=== PATIENT | male | born 1950 | race Caucasian/White ===

== ENCOUNTER 2018-10-07 18:34 | Emergency (ER) | payer MEDICARE, OTHER ==
[~2018-10-07] VITALS: Ht 167.6 cm; Wt 72.6 kg
[2018-10-07] MEDS ORDERED: PANT40TA4 PO (18:48)
[2018-10-07] MEDS ORDERED: BENA20TA9 PO (18:48)
[2018-10-07] MEDS ORDERED: METF-440 PO (18:48)
[2018-10-07] MEDS ORDERED: GLYB5TAB7 PO (18:48)
--- NOTE | 2018-10-07 19:14 | NUR ---
Received report from lilly RN, pt. resting in bed, emesis bag given, traffic monitor specialist being observed from nurse station, bed in low position,
[2018-10-07] MEDS ORDERED: IV NORMAL SALINE 1000 ML BAG IV ONE (19:15)
[2018-10-07] MEDS ORDERED: HYDROMORPHONE 1 MG/1 ML DISP.SYRIN IV ONE (19:15)
[2018-10-07] MEDS ORDERED: ONDANSETRON 4 MG/2 ML VIAL IV ONE (19:15)
--- NOTE | 2018-10-07 19:35 | NUR ---
Phleb. tech. at bedside for blood collection,
[2018-10-07 19:37] LABS: BASOPHILS % (AUTO) 0.4 % (0.0-2.0); EOSINOPHILS % (AUTO) 0.4 % (0.0-7.0); HEMOGLOBIN 13.6 g/dL (12.5-16.3); LYMPHOCYTES # (AUTO) 0.8 K/uL (20.0-40.0); MEAN CORPUSCULAR HEMOGLOBIN 30.5 uug (23.8-33.4); MEAN CORPUSCULAR HGB CONC 35 g/dL (32.5-36.3); MEAN CORPUSCULAR VOLUME 87.7 fL (73.0-96.2); MONOCYTES # (AUTO) 0.6 K/uL (2.0-10.0); MONOCYTES % (AUTO) 6.9 % (0.0-11.0); NEUTROPHILS # (AUTO) 7.8 K/uL (1.8-8.9); NEUTROPHILS % (AUTO) 83.3 % (38.5-71.5); PLATELET COUNT (AUTO) 217 K/uL (152-348); RED BLOOD CELL COUNT(AUTO) 4.45 MIL/uL (4.06-5.63); WHITE BLOOD COUNT (AUTO) 9.4 K/uL (3.6-10.2)
[2018-10-07] MEDS ORDERED: ONDANSETRON 4 MG/2 ML VIAL ONE (19:39)
[2018-10-07] MEDS ORDERED: HYDROMORPHONE 1 MG/1 ML DISP.SYRIN ONE (19:39)
[2018-10-07 19:44] LABS: CREATININE 1.6 mg/dL (0.6-1.3)
--- NOTE | 2018-10-07 19:47 | NUR ---
Pt. taken off unit via stretcher by [employer] tech. for CT
[2018-10-07 19:51] LABS: BILIRUBIN,DIRECT 0.2 mg/dL (0.0-0.2); BILIRUBIN,TOTAL 0.7 mg/dL (0.2-1.0); TOTAL PROTEIN, SERUM 7.4 g/dL (6.4-8.2)
[2018-10-07] MEDS: MAG HYDROX/AL HYDROX/SIMETH 30 ML LIQUID UDC PO ONE ×2 (20:15→20:40)
[2018-10-07] MEDS ORDERED: DICYCLOMINE HCL LIQ 10 MG/5 ML UDC PO ONE (20:15)
[2018-10-07] MEDS ORDERED: MAGNESIUM HYDROXIDE 30 ML LIQUID UDC ONE (20:38)
[2018-10-07] MEDS ORDERED: DICYCLOMINE HCL LIQ 10 MG/5 ML UDC ONE (20:38)
[2018-10-07] MEDS ORDERED: MAGNESIUM HYDROXIDE 30 ML LIQUID UDC PO ONE (21:00)
[2018-10-07] MEDS ORDERED: MAGNESIUM CITRATE 296 ML BOTTLE PO ONE (21:00)
--- NOTE | 2018-10-07 21:16 | NUR ---
Pt. resting in bed w/ eyes closed, IV patent and infusing fluids - no s/s infiltration/phlebitis,
[2018-10-07] MEDS ORDERED: MAGNESIUM CITRATE 296 ML BOTTLE ONE (21:57)
[2018-10-07] MEDS ORDERED: MINERAL OIL FLEET ENEMA 133 ML BOTTLE RC ONE (22:30)
[2018-10-07] MEDS ORDERED: FLEET ENEMA 133 ML BOTTLE RC ONE (22:32)
--- NOTE | 2018-10-07 22:32 | NUR ---
Patient discharged to home in stable conditon. Written and verbal after care instructions given. Patient verbalizes understanding of instructions. Pt. d/c per MD order, d/c papers signed, all belongings w/ pt., ID band/IV removed, ambulated off unit w/ steady gait accompanied by , NAD
== END 2018-10-07 22:33 | disposition home or self-care (01) ==
LOC: ER 18:34
DX: K59.00 Constipation, unspecified (principal); K21.9 Gastro-esophageal reflux disease without esophagitis; E11.9 Type 2 diabetes mellitus without complications; I10 Essential (primary) hypertension; Z79.899 Other long term (current) drug therapy
CPT/HCPCS: 36415; 71045; 74176; 80048; 80076; 83690; 84484; 85025; 85730; 93005; 96374; 96375; 99284; J1170; J2405; 70030-TC; A4663; J7030

== ENCOUNTER 2018-10-10 18:23 | Emergency (ER) | payer OTHER ==
[~2018-10-10] VITALS: Ht 167.6 cm; Wt 72.6 kg
[~2018-10-10 18:23] MED LIST: BENA20TA9 PO; GLYB5TAB7 PO; METF-440 PO; PANT40TA4 PO
[2018-10-10] MEDS ORDERED: NA P133E RC (18:30)
[2018-10-10] MEDS ORDERED: DOCU100T9 PO (18:30)
--- NOTE | 2018-10-10 18:35 | NUR ---
Patient ambulated with stable gait. A/Ox4. Speech is clear, speaks in complete sentences. No neuro deficits. Patient came in for c/o abdominal pain in [facility]Q. Patient reports having episodes of vomiting. Patient has had poor bowel movement for the past couple of days. Respiratory even and unlabored. Patient in bed in lowest position, side rails upx2, call light within reach. Fall precautions implemented per protocol.
[2018-10-10] MEDS ORDERED: HYDROMORPHONE 1 MG/1 ML DISP.SYRIN IV ONE (19:45)
[2018-10-10] MEDS ORDERED: DIATR MEGLU/DIATRIZOATE SODIUM 120 ML BOTTLE PO ONE (19:45)
[2018-10-10] MEDS ORDERED: ONDANSETRON 4 MG/2 ML VIAL IV ONE (19:45)
[2018-10-10] MEDS ORDERED: IV NORMAL SALINE 1000 ML BAG IV ONE (19:45)
[2018-10-10 19:54] LABS: BASOPHILS # (AUTO) 0.1 K/uL (0.0-8.0); BASOPHILS % (AUTO) 0.7 % (0.0-2.0); EOSINOPHILS # (AUTO) 0.1 K/uL (0.0-0.7); EOSINOPHILS % (AUTO) 1.4 % (0.0-7.0); HEMATOCRIT 37.2 % (36.7-47.1); HEMOGLOBIN 13.1 g/dL (12.5-16.3); LYMPHOCYTES # (AUTO) 1.1 K/uL (20.0-40.0); LYMPHOCYTES % (AUTO) 13.4 % (20.5-51.5); MEAN CORPUSCULAR HEMOGLOBIN 31.3 uug (23.8-33.4); MEAN CORPUSCULAR HGB CONC 35 g/dL (32.5-36.3); MEAN CORPUSCULAR VOLUME 89.2 fL (73.0-96.2); MONOCYTES # (AUTO) 0.9 K/uL (2.0-10.0); NEUTROPHILS # (AUTO) 5.8 K/uL (1.8-8.9); NEUTROPHILS % (AUTO) 73.5 % (38.5-71.5); PLATELET COUNT (AUTO) 235 K/uL (152-348); RED BLOOD CELL COUNT(AUTO) 4.17 MIL/uL (4.06-5.63); WHITE BLOOD COUNT (AUTO) 7.9 K/uL (3.6-10.2)
[2018-10-10] MEDS ORDERED: DIATR MEGLU/DIATRIZOATE SODIUM 30 ML SOLUTION ONE (19:58)
[2018-10-10] MEDS ORDERED: IV NORMAL SALINE 250 ML IV ONE (19:58)
[2018-10-10] MEDS ORDERED: NORMAL SALINE FLUSH 10 ML DISP.SYRIN ONE (19:58)
[2018-10-10] MEDS ORDERED: IOHEXOL 300MG/ML 100 ML INFUS..BTL ONE (19:58)
[2018-10-10] MEDS ORDERED: SWABABLE VALVE TRANSFER SET EA MC ONE (19:58)
[2018-10-10 20:01] LABS: CARBON DIOXIDE 24 mmol/L (21-32); CHLORIDE 96 mmol/L (98-107); CREATININE 1.4 mg/dL (0.6-1.3); GLUCOSE 213 mg/dL (74-106); POTASSIUM 4.9 mmol/L (3.5-5.1); UREA NITROGEN, BLOOD 18 mg/dL (7-18)
[2018-10-10] MEDS ORDERED: HYDROMORPHONE 1 MG/1 ML DISP.SYRIN ONE (20:05)
[2018-10-10] MEDS ORDERED: ONDANSETRON 4 MG/2 ML VIAL ONE (20:06)
[2018-10-10 20:07] LABS: ALANINE AMINOTRANSFERASE 38 U/L (16-63); ALKALINE PHOSPHATASE 51 U/L (50-136); ASPARTATE AMINOTRANSFERASE 21 U/L (15-37); BILIRUBIN,DIRECT 0.2 mg/dL (0.0-0.2); BILIRUBIN,TOTAL 0.5 mg/dL (0.2-1.0); LIPASE 518 U/L (73-393); TOTAL PROTEIN, SERUM 7.7 g/dL (6.4-8.2)
[2018-10-10] MEDS ORDERED: diphenhydrAMINE 50 MG/1 ML VIAL IV ONE (22:00)
[2018-10-10] MEDS ORDERED: diphenhydrAMINE 50 MG/1 ML VIAL ONE (22:01)
--- NOTE | 2018-10-11 00:12 | NUR ---
Call placed to [facility], Dr. Keane will be paged.
--- NOTE | 2018-10-11 00:16 | NUR ---
abd soft and non tender. no distress. pain tolerable and color good
[2018-10-11 01:52] VITALS: BP 132/76
== END 2018-10-11 01:56 | disposition home or self-care (01) ==
LOC: ER 18:24
DX: K85.90 Acute pancreatitis without necrosis or infection, unspecified (principal); K21.9 Gastro-esophageal reflux disease without esophagitis; E11.9 Type 2 diabetes mellitus without complications; I10 Essential (primary) hypertension; Z79.899 Other long term (current) drug therapy
CPT/HCPCS: 36415; 71045; 74177; 80048; 80076; 82140; 83690; 84484; 85025; 85730; 93005; 96374; 96375; 99284; J1170; J1200; J2405; Q9963; Q9967; 70030-TC; A4663; J3490; J7030; J7050

== ENCOUNTER 2018-10-11 12:58 | Emergency (ER) | payer OTHER ==
[~2018-10-11] VITALS: Ht 167.6 cm; Wt 72.6 kg
[~2018-10-11 12:58] MED LIST changes: +DOCU100T9 PO; +NA P133E RC
[2018-10-11] MEDS ORDERED: PANTOPRAZOLE SODIUM 40 MG VIAL IV ONE (13:45)
[2018-10-11] MEDS ORDERED: IV NORMAL SALINE 1000 ML BAG IV ONE (13:45)
[2018-10-11] MEDS ORDERED: ONDANSETRON 4 MG/2 ML VIAL IV ONE (13:45)
[2018-10-11] MEDS ORDERED: MORPHINE SULFATE 2 MG/1 ML DISP.SYRIN IV ONE (13:45)
--- NOTE | 2018-10-11 13:52 | NUR ---
PT IS IN ROOM #2B. DR RYAN EVALUATED THE PT.
[2018-10-11 13:53] LABS: BASOPHILS % (AUTO) 0.6 % (0.0-2.0); EOSINOPHILS # (AUTO) 0.1 K/uL (0.0-0.7); EOSINOPHILS % (AUTO) 1.1 % (0.0-7.0); HEMATOCRIT 37.3 % (36.7-47.1); HEMOGLOBIN 12.8 g/dL (12.5-16.3); LYMPHOCYTES # (AUTO) 0.6 K/uL (20.0-40.0); LYMPHOCYTES % (AUTO) 11.3 % (20.5-51.5); MEAN CORPUSCULAR HEMOGLOBIN 30.6 uug (23.8-33.4); MEAN CORPUSCULAR HGB CONC 34 g/dL (32.5-36.3); MONOCYTES # (AUTO) 0.5 K/uL (2.0-10.0); MONOCYTES % (AUTO) 8.4 % (0.0-11.0); NEUTROPHILS # (AUTO) 4.2 K/uL (1.8-8.9); NEUTROPHILS % (AUTO) 78.6 % (38.5-71.5); PLATELET COUNT (AUTO) 201 K/uL (152-348); RED BLOOD CELL COUNT(AUTO) 4.19 MIL/uL (4.06-5.63); WHITE BLOOD COUNT (AUTO) 5.4 K/uL (3.6-10.2)
[2018-10-11] MEDS ORDERED: ONDANSETRON 4 MG/2 ML VIAL ONE (13:56)
[2018-10-11] MEDS ORDERED: MORPHINE SULFATE 4 MG/1 ML DISP.SYRIN ONE (13:56)
[2018-10-11] MEDS ORDERED: PANTOPRAZOLE SODIUM 40 MG VIAL ONE (13:57)
[2018-10-11 14:01] LABS: CREATININE 1.1 mg/dL (0.6-1.3); POTASSIUM 4.3 mmol/L (3.5-5.1)
[2018-10-11 14:06] LABS: BILIRUBIN,DIRECT 0.2 mg/dL (0.0-0.2); BILIRUBIN,TOTAL 0.7 mg/dL (0.2-1.0)
[2018-10-11] MEDS ORDERED: diphenhydrAMINE 25 MG CAP PO ONE ×2 (15:29→15:30)
--- NOTE | 2018-10-11 15:48 | NUR ---
PT WAS D/C'd TO HOME. D/C INSTRUCTIONS GIVEN TO THE PT.
[2018-10-11 15:49] VITALS: BP 131/81
== END 2018-10-11 15:50 | disposition home or self-care (01) ==
LOC: ER 12:58
DX: K29.70 Gastritis, unspecified, without bleeding (principal); K21.9 Gastro-esophageal reflux disease without esophagitis; E11.9 Type 2 diabetes mellitus without complications; Z79.899 Other long term (current) drug therapy
CPT/HCPCS: 36415; 71045; 80048; 80076; 83690; 84484; 85025; 93005; 96361; 96374; 96375; 99284; C9113; J2270; J2405; Q0163; 70030-TC; A4663; J7030